=== PATIENT | female | born 1980 | race Caucasian/White ===

== ENCOUNTER 2024-04-19 09:57 | Emergency (ER) | payer OTHER, SELFPAY ==
[2024-04-19] VITALS (7 sets, daily range): BP systolic 109–128; BP diastolic 58–82; PULSE 65–75; RESP 17–20; TEMP 36.7; O2SAT 97–100
--- NOTE | ~2024-04-19 | XR_ITS ---
EXAMINATION: XR chest 2V DATE: 04/19/2024 10:38 INDICATION: Midsternal chest pain. Shortness of breath. TECHNIQUE: Frontal and lateral views of the chest were obtained. COMPARISON: None. FINDINGS: A calcified right lung nodule is consistent with old granulomatous disease. No pleural effu tarah or pneumothorax. The heart size is normal. IMPRESSION: 1. No acute cardiopulmonary disease. Reviewed, dictated and finalized at location A. AINABLE SYSTEMS ANALYST
--- NOTE | 2024-04-19 10:01 | ECG_ITS ---
Test Date: 2024-04-19 10:04:52 Measurements Intervals [place] Rate: 74 P: 22 NC: 172 QRS: 27 QRSD: 89 T: 24 QT: 370 QTc: 413 Interpretive Statements SINUS RHYTHM BASELINE ARTIFACT- I, II, III, AVR, AVL, AVF NORMAL ECG No previous ECG available for comparison Electronically Signed On 04-19-2024 11:44:01 VP [employer]AT[employer] by Chong Jones D.O.
--- NOTE | 2024-04-19 10:14 | ED.GENADULT ---
HPI - General Adult General Chief complaint: Chest Pain Stated complaint: CP Time Seen by Provider: 04/19/24 10:01 History of Present Illness HPI narrative: 43 old female presents to the emergency department for evaluation for chest pain. patient reports that approximately 930 she had onset of chest pain. Patient denies any significant previous cardiac history. Patient does smoke and vape. Patient is currently at [facility] for suicidal ideation. Patient denies any current suicidal ideation. patient is in no distress at time of evaluation. Related Data Allergies Allergy/AdvReac Type Severity Reaction Status Date / Time banana Allergy Swelling Verified 04/19/24 10:14 of Lip/Tongue/Throat iohexol Allergy Itching Verified 04/19/24 10:14 [From contrast - CT, X-RAY] shellfish derived Allergy Anaphylactic Verified 04/19/24 10:14 Shock Review of Systems Review of Systems: All systems reviewed & are unremarkable except as noted in HPI and below Exam Narrative: APPEARANCE: Well appearing, no pain, no distress, well-nourished. HEAD: normocephalic, atraumatic. EYES: PERRLA/EOMI, conjunctivae clear. NOSE: Normal no drainage EARS:TMS clear with good light reflex. THROAT: Pharynx clear, no exudate. NECK: Supple. No adenopathy, no masses. RESPIRATORY: Airway patent, respirations nonlabored. Clear to auscultation bilaterally, no rales, rhonchi, wheezing. CARDIOVASCULAR: Regular rate and rhythm without murmurs rubs or gallops. ABDOMINAL: Soft, nontender, nondistended, normal bowel sounds MUSCULOSKELETAL: Moves all extremities. Strength/ROM intact, No edema, No calf tenderness. NEURO: Alert. Cranial nerves II through XII intact. grossly intact SKIN: Warm, dry. Normal Color Course Vital Signs Vital signs: Vital Signs Temperature 98.0 F 04/19/24 10:02 Pulse Rate 74 04/19/24 10:02 Respiratory Rate 18 04/19/24 10:02 Blood Pressure 109/72 04/19/24 10:02 Pulse Oximetry 100 04/19/24 10:02 Oxygen Delivery Room Air 04/19/24 10:02 Temperature 98.0 F 04/19/24 10:02 Pulse Rate 68 04/19/24 14:31 Respiratory Rate 18 04/19/24 14:31 Blood Pressure 128/73 04/19/24 14:31 Pulse Oximetry 97 04/19/24 14:31 Oxygen Delivery Room Air 04/19/24 11:06 Medical Decision Making [facility] Narrative Medical decision making narrative: [age] year old female presents to the emergency department for evaluation for intermittent chest pain. Patient's chest pain is resolved. Patient is no distress in the emergency department. Patient is afebrile but does have a leukocytosis of 10.2 and hemoglobin of 13. INR 0.9, no acute abnormalities on the patient's CMP chest x-ray shows no acute cardiopulmonary abnormality. Patient had negative serial troponins. EKG showed normal sinus rhythm. Differential Diagnosis Differential Diagnosis: ACS, pneumonia, pneumothorax, AFib, anxiety Vital Signs Vital Signs: Vital Signs Temperature 98.0 F 04/19/24 10:02 Pulse Rate 74 04/19/24 10:02 Respiratory Rate 18 04/19/24 10:02 Blood Pressure 109/72 04/19/24 10:02 Pulse Oximetry 100 04/19/24 10:02 Oxygen Delivery Room Air 04/19/24 10:02 Temperature 98.0 F 04/19/24 10:02 Pulse Rate 68 04/19/24 14:31 Respiratory Rate 18 04/19/24 14:31 Blood Pressure 128/73 04/19/24 14:31 Pulse Oximetry 97 04/19/24 14:31 Oxygen Delivery Room Air 04/19/24 11:06 Lab Data Lab results reviewed: Yes I reviewed the patient's lab results. 04/19/24 10:15 04/19/24 10:15 Labs: Lab Results 04/19/24 04/19/24 Range/Units 10:15 13:10 WBC 10.2 H (4.5-10.0) K/mm3 RBC 4.46 (4.2-5.4) M/mm3 Hgb 13.0 (12.0-15.0) g/dL Hct 41.5 (37.0-47.0) % MCV 93.0 (80-100) fl MCH 29.1 (26-34) pg MCHC 31.3 L (32-36) g/dl RDW 14.5 (11.5-14.5) % Plt Count 191 (150-375) k/mm3 MPV 12.5 H (7.4-10.4) fl Immature Gran % (Auto) 0.7 H (0-0.5) % Neut % (Auto) 68.6 (45.5-73.1) % Lymph % (Auto) 22.0 (18.3-44.2) % [place] % (Auto) 6.5 (2.6-8.5) % Eos % (Auto) 1.7 (0-4.4) % Baso % (Auto) 0.5 (0.2-1.2) % Lymph # (Auto) 2.24 (0.9-3.2) K/mm3 [place] # (Auto) 0.7 H (0.1-0.6) K/mm3 Eos # (Auto) 0.2 (0-0.3) K/mm3 Baso # (Auto) 0.1 (0.0-0.1) K/mm3 Abs Immat Gran (auto) 0.07 H (0.00-0.031) K/mm3 Absolute Neuts (auto) 7.0 H (1.3-6.7) K/mm3 Absolute Nucleated RBC 0.000 (0.0-0.012) K/mm3 Nucleated RBC % 0.0 (0.0-0.2) % PT 12.6 (11.1-14.7) Seconds INR 0.9 APTT 26.2 (22.3-36.8) Seconds Sodium 136 L (137-145) mmol/L Potassium 4.3 (3.4-5.0) mmol/L Chloride 107 (98-107) mmol/L Carbon Dioxide 22 (22-30) mmol/L Anion Gap 7 (4-12) mmol/L BUN 21 H (7-17) mg/dL Creatinine 0.90 (0.7-1.0) mg/dL Estim Creat Clear Calc 86 ml/min Estimated GFR > 60 (59 - ) Glucose 115 H (65-110) mg/dL Calcium 9.1 (8.4-10.2) mg/dL Total Bilirubin 0.5 (0.2-1.3) mg/dL AST 24 (14-36) U/L ALT 21 (6-35) U/L Alkaline Phosphatase 82 (38-126) U/L Troponin I < 0.012 < 0.012 (0.000-0.034) ng/mL Total Protein 8.0 (6.3-8.2) g/dL Albumin 4.1 (3.5-5.1) g/dL Lipase 107 (23-300) U/L Imaging Data Radiologist's impression: Impressions Chest X-Ray 04/19/24 10:43 IMPRESSION: 1. No acute cardiopulmonary disease. ECG Data EKG #1: EKG Interpretation: normal rate, sinus rhythm, no ectopy, non-specific ST changes, no ST changes, NL axis and no acute changes Discharge Plan Discharge Clinical Impression: Chest pain Patient Disposition: Home, Self-Care Condition: Stable Instructions: Antibiotic Form, Chest Pain (ED) Additional Instructions: Have close follow-up with your primary care physician for additional outpatient cardiac testing. If you have any worsening symptoms then please call or return to the emergency department. Follow-up/Referrals: PHYSICIAN NOT ON STAFF,NONSTAFF [Primary Care Provider] - Quality HEART score for chest pain patients History: slightly suspicious ECG: normal Age: < or = to 45 years Risk factors: 1 or 2 risk factors Troponin: < or = to 1x normal limit Heart score: 1
[2024-04-19] MEDS: ASPIRIN 81 MG CHEWABLE TABLET 324 MG PO (10:16)
[2024-04-19 10:22] LABS: Basophils Absolute Auto 0.1 K/mm3 (0.0-0.1); Basophils Percent Auto 0.5 % (0.2-1.2); Eosinophils Absolute Auto 0.2 K/mm3 (0-0.3); Eosinophils Percent Auto 1.7 % (0-4.4); Hematocrit 41.5 % (37.0-47.0); Immature Granulocyte Absolute 0.07 K/mm3 (0.00-0.031); Immature Granulocyte Percent A 0.7 % (0-0.5); Lymphocytes Absolute Auto 2.24 K/mm3 (0.9-3.2); Mean Corpuscular HGB Conc 31.3 g/dl (32-36); Mean Corpuscular Hemoglobin 29.1 pg (26-34); Mean Platelet Volume 12.5 fl (7.4-10.4); Monocytes Absolute Auto 0.7 K/mm3 (0.1-0.6); Monocytes Percent Auto 6.5 % (2.6-8.5); Neutrophils Percent Auto 68.6 % (45.5-73.1); Platelet Count Result 191 k/mm3 (150-375); Red Blood Count 4.46 M/mm3 (4.2-5.4); Red Cell Distribution Width 14.5 % (11.5-14.5); White Blood Count 10.2 K/mm3 (4.5-10.0)
[2024-04-19 10:33] LABS: Alanine Aminotransferase 21 U/L (6-35); Albumin Level 4.1 g/dL (3.5-5.1); Alkaline Phosphatase 82 U/L (38-126); Anion Gap 7 mmol/L (4-12); Aspartate Amino Transferase 24 U/L (14-36); Bilirubin,Total 0.5 mg/dL (0.2-1.3); Blood Urea Nitrogen 21 mg/dL (7-17); Calcium 9.1 mg/dL (8.4-10.2); Carbon Dioxide 22 mmol/L (22-30); Chloride 107 mmol/L (98-107); Estimated CRCL calculation 86 ml/min; Estimated Glomerular Filt Rate > 60; Glucose 115 mg/dL (65-110); Lipase 107 U/L (23-300); Potassium 4.3 mmol/L (3.4-5.0); Sodium 136 mmol/L (137-145)
[2024-04-19 10:38] LABS: INR 0.9; Prothrombin Time 12.6 Seconds (11.1-14.7)
[2024-04-19 10:39] LABS: Partial Thromboplastin Time 26.2 Seconds (22.3-36.8)
[2024-04-19 10:44] LABS: Troponin I < 0.012 ng/mL (0.000-0.034)
--- NOTE | 2024-04-19 13:04 | ECG_ITS ---
Test Date: 2024-04-19 13:10:08 Measurements Intervals [place] Rate: 67 P: 25 PA: 189 QRS: 19 QRSD: 90 T: 18 QT: 401 QTc: 425 Interpretive Statements SINUS RHYTHM CONSIDER INFERIOR INFARCT, AGE INDETERMINATE BASELINE ARTIFACT- I, II, AVR, AVL, V1 ABNORMAL ECG Compared to ECG 04/19/2024 10:04:52 No significant changes Electronically Signed On 04-19-2024 16:18:48 DENTAL INSTRUMENT MAKER by Chong Jones D.O.
[2024-04-19 13:44] LABS: Troponin I < 0.012 ng/mL (0.000-0.034)
== END 2024-04-19 14:36 | disposition home or self-care (01) ==
PROVIDERS: Emergency Medicine; Emergency Provider Emergency Medicine
DX: R07.9 Chest pain, unspecified (principal); R94.31 Abnormal electrocardiogram [ECG] [EKG]
CPT/HCPCS: 36415; 71046; 80053; 83690; 84484; 85025; 85610; 85730; 93005; 99284; A9270

== ENCOUNTER 2024-05-03 18:33 | Emergency (ER) | payer OTHER, SELFPAY ==
--- NOTE | ~2024-05-03 | XR_ITS ---
XR hip RT 2V w AP pelvis DATE: 05/03/2024 18:55 INDICATION: Right hip pain. No injury. TECHNIQUE: AP pelvis. AP and lateral views of right hip. COMPARISON: None FINDINGS: No pelvic fracture or bone destruction. Normal alignment at the pubic symphysis and sacroil iac joints. Hip joint spaces are symmetric and well preserved. I no fracture, dislocation, avascular necrosis or bone destruction of the right hip. IMPRESSION: Negative Reviewed, dictated and finalized at location A. NUTRITION SCIENTIST IMPRESSION: Negative
[2024-05-03 18:35] VITALS: RESP 16
[2024-05-03 18:37] VITALS: BP 141/90; PULSE 88; TEMP 36.4; O2SAT 99
--- NOTE | 2024-05-03 20:02 | ED.EXTPRO ---
HPI - Extremity Problem General Chief complaint: Extremity Problem,Nontraumatic Stated complaint: right hip pain Time Seen by Provider: 05/03/24 18:40 Source: patient Mode of arrival: ambulatory Limitations: no limitations History of Present Illness HPI Narrative: Patient is a 43-year-old female who presents to the ED with report of right hip pain. Patient reports she has been walking around on a track recently and has had increased pain in her right lateral hip over the last 3-4 days. States pain somewhat radiates down back of leg. Denies significant back pain. Denies numbness or saddle anesthesia. Denies weakness. Denies bowel or bladder incontinence. Patient has been taking Tylenol and Flexeril for the pain with minimal improvement. She is unable to take anti-inflammatories due to being on lithium. Currently residing at [facility]. Related Data Allergies Allergy/AdvReac Type Severity Reaction Status Date / Time banana Allergy Swelling Verified 05/03/24 18:38 of Lip/Tongue/Throat iohexol Allergy Itching Verified 05/03/24 18:38 [From contrast - CT, X-RAY] shellfish derived Allergy Anaphylactic Verified 05/03/24 18:38 Shock Review of Systems Review of Systems: All systems reviewed & are unremarkable except as noted in HPI. All systems reviewed & are unremarkable except as noted in HPI and below Exam Narrative: GENERAL: Well appearing, obese with BMI of 37.5, non-toxic, in no acute distress. HEAD: Normocephalic, atraumatic. RESPIRATORY: Airway patent, respirations nonlabored. CARDIOVASCULAR: Regular rate and rhythm. MUSCULOSKELETAL: Moves all extremities. No gross deformities. Mild tenderness to palpation along lateral right hip joint. Positive straight leg raise on right. Sensation intact throughout extremity. SKIN: Warm, dry, normal color. NEURO: A&O X3. Speech clear. Steady gait. No ataxic movements. PSYCHIATRIC: Appropriate mood and affect. Normal interaction. Course Vital Signs Vital signs: Vital Signs Respiratory Rate 16 05/03/24 18:35 Oxygen Delivery Room Air 05/03/24 18:35 Temperature 97.6 F 05/03/24 18:37 Pulse Rate 88 05/03/24 18:37 Respiratory Rate 16 05/03/24 18:35 Blood Pressure 141/90 H 05/03/24 18:37 Pulse Oximetry 99 11/23/24 18:37 Oxygen Delivery Room Air 05/03/24 18:35 MDM - Extremity (Nontraumatic) MDM Narrative Medical decision making narrative: Patient's injury is consistent with musculoskeletal etiology. No signs of neurologic or vascular compromise on physical examination. Compartments are soft without signs of compartment syndrome. XR of R hip/pelvis negative for acute findings. Pain is consistent with hip strain vs sciatic inflammation. No back pain however, no evidence of cord compression or cauda equina. Patient is felt to be stable for discharge home and further outpatient management and treatment. Will rx lidocaine patches and muscle relaxers for home. Advised to continue Tylenol as needed. Will refer to orthopedics as needed. Given return precautions. Discharged in stable condition back to [facility]. D/C in stable condition. Medical Records Attestation: I reviewed the patient's medical records. Imaging Data Attestation: I personally reviewed and interpreted this imaging study as follows: Radiologist's impression: ITS Impressions Hip/Pelvis X-Ray 05/03/24 18:56 IMPRESSION: Negative Discharge Plan Discharge Clinical Impression: Strain of right hip Qualifiers: Encounter type: initial encounter Qualified Code(s): S76.011A - Strain of muscle, fascia and tendon of right hip, initial encounter Patient Disposition: Home, Self-Care Condition: Stable Instructions: Antibiotic Form, Hip Sprain (ED), Hip Contusion (ED) Additional Instructions: Continue Tylenol as needed for pain. Ice and lidocaine patches to hip as needed. Take muscle relaxers as needed and prescribed. Recommend taking these at night as they may cause sedation. Do not drive, operate heavy machinery, drink alcohol while on muscle relaxers as this may cause further sedation. Follow-up with your primary care doctor or orthopedics for further evaluation if needed. Return for new worsening symptoms. Prescriptions: New methocarbamol 750 mg tablet 1,500 mg PO TID PRN (Reason: muscle spasm) Qty: 15 0RF lidocaine 5 % adhesive patch,medicated 1 patch topical DAILY Qty: 15 0RF Rx Instructions: leave on most painful area for up to 12 hrs Follow-up/Referrals: PHYSICIAN NOT ON STAFF,NONSTAFF [Primary Care Provider] - Yoni Marc MD [Physician] - (ORTHOPEDICS) Time of Disposition: 20:05
[2024-05-03] MEDS: ACETAMINOPHEN 500 MG TABLET 1000 MG PO (20:26)
[2024-05-03] MEDS: methocarbamoL 500 MG TABLET 1000 MG PO (20:26)
== END 2024-05-03 20:40 | disposition home or self-care (01) ==
PROVIDERS: Emergency Provider Physician Assistant
DX: S76.011A Strain of muscle, fascia and tendon of right hip, initial encounter (principal); X58.XXXA Exposure to other specified factors, initial encounter
CPT/HCPCS: 73502; 99283; A9270